=== PATIENT | male | born 1955 | race Caucasian/White ===

== ENCOUNTER 2018-02-26 15:26 | Inpatient (IN) ==
[2018-02-26] MEDS ORDERED: *HR* Dextrose 50 % in Water (Syg) 50 ML SYRINGE IVP PRN (21:09)
[2018-02-26] MEDS ORDERED: D5% in Water 1,000 ML IVC PRN (21:09)
[2018-02-26] MEDS ORDERED: Dextrose Gel 15 GM/37.5 ML TUBE PO PRN ×2 (21:09)
[2018-02-26] MEDS: Acetaminophen 325 MG TABLET PO PRN (22:50)
[2018-02-26] MEDS: Aspirin Enteric Coated 325 MG Tablet PO SCH (22:50)
[2018-02-27 05:22] LABS: Basophils % 0.3 %; Eosinophils # 0.5 K/mcL (0.0-0.6); Eosinophils % 4.3 %; Hematocrit 30.1 % (37.5-50.1); Hemoglobin 9.4 g/dL (12.9-16.9); Immature Granulocytes % 0.4 % (0-4); Lymphocytes # 1.8 K/mcL (0.6-4.6); Lymphocytes % 15.6 %; Mean Corpuscular HGB Conc 31.2 g/dL (31.6-35.5); Mean Corpuscular Hemoglobin 27.4 pg (28.0-33.3); Mean Corpuscular Volume 87.8 fL (83.0-100.0); Mean Platelet Volume 8.9 fL (9.4-12.4); Monocytes # 1.1 K/mcL (0.0-1.3); Monocytes % 9.6 %; Platelet Count 326 K/mcL (140-400); Red Blood Count 3.43 M/mcL (4.19-5.50); Red Cell Distribution Width 13.3 % (11.5-14.5); Segmented Neutrophils % 69.8 %
[2018-02-27 05:41] LABS: Calcium 8.9 mg/dL (8.6-10.3); Potassium 4.2 mEq/L (3.5-5.1)
[2018-02-27] MEDS: *HR* OxyCODONE Immed Rel 5 MG TABLET PO PRN ×4 (05:50→21:33)
[2018-02-27] MEDS: Insulin LISPRO 300 UNITS/3 ML VIAL SQ SCH ×4 (07:56→21:32)
[2018-02-27] MEDS: Aspirin Enteric Coated 325 MG Tablet PO SCH ×2 (08:54→21:33)
[2018-02-27] MEDS: Insulin NPH/REG 70/30 100 UNIT/ML (x5UNIT) SQ SCH ×2 (08:55→17:14)
[2018-02-27] MEDS: Acetaminophen 325 MG TABLET PO PRN ×2 (09:10→17:15)
[2018-02-27 16:54] LABS: Bilirubin,Urine Negative (Negative); Clarity,Urine Clear (Clear); Color,Urine Yellow (Yellow); Glucose,Urine (UA) Normal (Normal); Ketones,Urine Negative (Negative); Leukocyte Esterase,Urine Negative (Negative); Nitrite,Urine Negative (Negative); Protein,Urine 30 mg/dL (Neg-Trace); Specific Gravity,Urine 1.015 (1.010-1.025); Urobilinogen,Urine Normal (Normal)
[2018-02-27 16:55] LABS: Blood,Urine Negative (Negative)
[2018-02-27 17:00] LABS: Squamous Epithelial Cell,Urine Few per lpf (None-Few)
[2018-02-28] MEDS: *HR* OxyCODONE Immed Rel 5 MG TABLET PO PRN ×4 (04:15→23:23)
[2018-02-28 04:40] LABS: Thyroid Stimulating Hormone 1.467 mcIU/mL (0.340-5.600)
[2018-02-28] MEDS: Insulin LISPRO 300 UNITS/3 ML VIAL SQ SCH ×4 (09:44→20:55)
[2018-02-28] MEDS: Aspirin Enteric Coated 325 MG Tablet PO SCH ×2 (09:45→20:53)
[2018-02-28] MEDS: Insulin NPH/REG 70/30 100 UNIT/ML (x5UNIT) SQ SCH ×2 (09:46→17:26)
--- NOTE | 2018-02-28 19:00 | Internal Med History&Physical ---
Date of Encounter: 02/27/18 Time of Encounter: 18:30 Assessment and Plan (1) Status post total right knee replacement Current visit: No Status: Acute continue current care pain control increase to q 4 hr pt ot (2) TERRY on CPAP Current visit: No Status: Chronic some recent noncompliance at home old machine try our cpap here setting of 10 Internal Medicine - H&P: HPI Chief complaint: S/P Right Total Knee replacement deconditioning Admitted From: Intrahospital Transfer History of present illness: Mr. Verde is a 62 year old male who recently had Right Total knee replacement states went well but he is deconditioned here for rehab he states he has some pain in the knee that gets 8/10 at times says he has had terry his home cpap machine is here but not complete missing parts he says he lost about 60 lb by diet and since then he did not get repeat sleep study says he has interest in trying our cpap Past Med Surg Social Fam HX - Past Medical History Medical history: diabetes, hyperlipidemia, kidney stones, other Additional medical history: KIDNEY DISEASE, GOUT, BPH, TERRY, sleep apnea Psychiatric history: no psych history - Past Surgical History Surgical History: herniorrhaphy, orthopedic, other Additional surgical history: COLONOSCOPY, UMESH KNEE SX,. Eye Surgery - Social History Smoking Status: Former smoker Smokeless Tobacco Status: No Alcohol use: none Drug use: none - Family History Mother Hx Family Endocrine Disorder: Yes (DM) Father History Unknown: Yes Living Status: Hx Family Respiratory Disorders: Yes Hx Family Cancer: Yes (unknown type) Internal Medicine - H&P: Meds Atorvastatin [Lipitor] 20 mg PO DAILY 03/05/15 [History] Omeprazole [PriLOSEC] 40 mg PO DAILY 11/14/17 [History] Acetaminophen [Tylenol] 650 mg PO Q6HR PRN 02/22/18 [History] Aspirin Enteric Coated [Aspirin EC] 325 mg PO BID 10 Days #20 tablet. 02/22/18 [Rx] OxyCODONE Immed Rel [Roxicodone 5 MG] 5 mg PO Q6HR PRN 7 Days #28 tablet 02/22/18 [Rx] Insulin NPH/REG 70/30 (HUMAN) [Humulin 70/30 Vial] 8 unit SQ BIDWM 02/26/18 [History] Allergy/AdvReac Type Severity Reaction Status Date / Time No Known Allergies Allergy Verified 02/22/18 14:58 All Systems PM: A 10-system review of systems was performed and is negative for pertinent findings except as documented above in the HPI. - Constitutional Vitals: Temp Pulse Resp BP Pulse Ox 98.7 F 103 18 130/82 97 02/28/18 09:00 02/28/18 09:00 02/28/18 09:00 02/28/18 09:00 02/28/18 09:00 General appearance: Present: pleasant, answers questions appropriately - Neck Additional comments: thick neck no mass - Respiratory Additional comments: clear bilat some barrel chest - Cardiovascular Additional comments: regular he has no murmer today on auscultation - GI/Abdominal GI/Abdominal exam: Present: no peritoneal signs Additional comments: bs present nt Internal Med - H&P Results - Labs CBC & Chem 7: 02/27/18 05:10 02/27/18 05:10 - VTE Documentation of Mechanical Device: Graduated compression elastic hosiery
--- NOTE | 2018-02-28 19:06 | Internal Med Progress Note ---
Date of Encounter: 02/28/18 Time of Encounter: 15:40 - Assessment and plan (1) Status post total right knee replacement Current Visit: No Status: Acute (2) TERRY on CPAP Current Visit: No Status: Chronic - Subjective Interval history: Assessment and Plan (1) Status post total right knee replacement Current visit: No Status: Acute continue current care pain control increase to q 4 hr pt ot (2) TERRY on CPAP Current visit: No Status: Chronic some recent noncompliance at home old machine try our cpap here setting of 10 hb 9.5 will check iron and b12 Interval hx S/P Right Total Knee replacement deconditioning Admitted From: Intrahospital Transfer History of present illness: Mr. Verde is a 62 year old male who recently had Right Total knee replacement states went well but he is deconditioned here for rehab he states he has some pain in the knee that gets 8/10 at times did increase pain rx to q 4h exam - Constitutional Vitals: Temp Pulse Resp BP Pulse Ox 98.7 F 103 18 130/82 97 02/28/18 09:00 02/28/18 09:00 02/28/18 09:00 02/28/18 09:00 02/28/18 09:00 General appearance: Present: pleasant, answers questions appropriately - Neck Additional comments: thick neck no mass - Respiratory Additional comments: clear bilat some barrel chest - Cardiovascular Additional comments: regular he has no murmer today on auscultation - GI/Abdominal GI/Abdominal exam: Present: no peritoneal signs Additional comments: bs present nt Internal Med - H&P Results - Labs CBC & Chem 7: 02/27/18 05:10 02/27/18 05:10 - VTE Documentation of Mechanical Device: Graduated compression elastic hosiery - Constitutional Vitals: Temp Pulse Resp BP Pulse Ox 99.2 F 109 16 128/64 95 02/28/18 19:02 02/28/18 19:02 02/28/18 19:02 02/28/18 19:02 02/28/18 19:02 General appearance: Present: pleasant, answers questions appropriately Internal Medicine: Result - Labs CBC & Chem 7: 02/27/18 05:10 02/27/18 05:10 - VTE Documentation of Mechanical Device: Graduated compression elastic hosiery Consult Discharge Plan - Plan Referrals: UcNahun sánchez MD [Primary Care Provider] -
[2018-03-01] MEDS: *HR* OxyCODONE Immed Rel 5 MG TABLET PO PRN ×4 (04:08→20:45)
[2018-03-01 05:31] LABS: Basophils % 0.3 %; Eosinophils # 0.4 K/mcL (0.0-0.6); Eosinophils % 4.1 %; Hematocrit 29.5 % (37.5-50.1); Hemoglobin 9.4 g/dL (12.9-16.9); Immature Granulocytes % 0.5 % (0-4); Lymphocytes # 1.5 K/mcL (0.6-4.6); Lymphocytes % 14.5 %; Mean Corpuscular HGB Conc 31.9 g/dL (31.6-35.5); Mean Corpuscular Hemoglobin 27.5 pg (28.0-33.3); Mean Corpuscular Volume 86.3 fL (83.0-100.0); Mean Platelet Volume 9.1 fL (9.4-12.4); Monocytes % 9.7 %; Neutrophils # 7.1 K/mcL (1.6-8.9); Platelet Count 381 K/mcL (140-400); Red Blood Count 3.42 M/mcL (4.19-5.50); Red Cell Distribution Width 13.2 % (11.5-14.5); Segmented Neutrophils % 70.9 %
[2018-03-01 05:45] LABS: Calcium 9.4 mg/dL (8.6-10.3); Potassium 4.3 mEq/L (3.5-5.1)
[2018-03-01] MEDS: Aspirin Enteric Coated 325 MG Tablet PO SCH ×2 (09:51→20:45)
[2018-03-01] MEDS: Insulin NPH/REG 70/30 100 UNIT/ML (x5UNIT) SQ SCH ×2 (09:52→18:26)
[2018-03-01] MEDS: Insulin LISPRO 300 UNITS/3 ML VIAL SQ SCH ×4 (09:53→20:45)
[2018-03-01] MEDS: Acetaminophen 325 MG TABLET PO PRN (11:43)
[2018-03-01 13:16] LABS: % Iron Saturation 6 % (20-55); Iron 14 mcg/dL (65-175); Transferrin 172 mg/dL (203-362)
--- NOTE | 2018-03-01 15:43 | Internal Med Progress Note ---
Addendum entered and electronically signed by Abraham Somers MD 03/01/18 16:30: I have personally performed a face to face evaluation on this patient. I have r eviewed and agree with the care plan. History and Exam by me shows: Patient has complaint of right knee pain, only. On further questioning, he has not had a bowel movement "for 2 weeks." He denies abdominal pain or nausea, breathing problems, other etc. Discussed care with other providers and/or nursing. Patient has no complaint of chest discomfort, dyspnea, orthopnea, palpitations, nausea or vomiting, constipation or diarrhea, other changes in bowel habits, difficulty with urination, rash or itching, or other new complaints, except as mentioned above. Review of systems is otherwise negative. Examination: (Except as mentioned above): General: In no apparent distress. Alert and oriented 3. Nondiaphoretic. Head: Atraumatic and normocephalic. Respiratory: No use of accessory muscles. Lungs are clear throughout. Normal airflow. Cardiovascular: Regular rate and rhythm without murmur appreciated. Abdomen: Bowel sounds are normal. No hepatosplenomegaly mass or tenderness appreciated. Obese and therefore difficult to palpate deeply. Extremities: No cyanosis clubbing or edema. Skin: Warm and non-diaphoretic with no new lesions noted. Neurologic: The patient has noted asterixis. We will follow and try to decrease his opioids in the next day or so. I suspect that he will have a low pain tolerance and nursing confirms this. We will use magnesium citrate to try to invoke a bowel movement. Original Note: Date of Encounter: 03/01/18 Time of Encounter: 15:39 - Assessment and plan (1) Status post total right knee replacement Current Visit: No Status: Acute Assessment and plan: Patient continues with complaints of moderate to severe pain to his right knee which increases with movement. Right knee appears slightly swollen but midline surgical incision appears healthy and intact. Patient's current pain medications have been increased and will monitor patient's response to medication. (2) CKD (chronic kidney disease) Current Visit: Yes Status: Chronic Assessment and plan: No acute issues at this time. Patient's last creatinine was 1.49. We will cont inue to monitor patient's renal status with serial labs. We will continue with current medications. Qualifiers: Chronic kidney disease stage: unspecified stage Qualified Code(s): N18.9 - Chronic kidney disease, unspecified (3) HTN (hypertension) Current Visit: Yes Status: Chronic Assessment and plan: Vital signs are stable. We will continue with current medications. Qualifiers: Hypertension type: unspecified Qualified Code(s): I10 - Essential (primary) hypertension (4) GERD (gastroesophageal reflux disease) Current Visit: Yes Status: Chronic Assessment and plan: No acute issues. Patient denies any current reflux or abdominal pain. We will continue with current medications. Qualifiers: Esophagitis presence: esophagitis presence not specified Qualified Code(s): K21.9 - Gastro-esophageal reflux disease without esophagitis (5) Diabetes mellitus Current Visit: No Status: Chronic Assessment and plan: No acute issues. Patient's glucoses preferable controlled with most fingerstick readings between 150 and 200. We will continue with current medication regimen. Qualifiers: Diabetes mellitus type: type 2 Diabetes mellitus penitentiary insulin use: with penitentiary use Diabetes mellitus complication status: with unspecified complications Qualified Code(s): E11.8 - Type 2 diabetes mellitus with unspecified complications; Z79.4 - [facility] (current) use of insulin - Time Spent With Patient less than 15 minutes - Subjective Interval history: Patient appears relaxed but noted grimacing with minimal movement of right leg. Patient continues with complaints of moderate to severe pain to his right knee surgical site. Patient states that pain increases with any movement and states that his current pain medications have not been effective in controlling this pain. Patient has continuous icing machine available, but currently is not in use. Patient denies any other issues or dyspnea. - Constitutional Vitals: Temp Pulse Resp BP Pulse Ox 99.2 F 103 15 142/81 96 03/01/18 08:07 03/01/18 08:07 03/01/18 08:07 03/01/18 08:07 03/01/18 08:07 General appearance: Present: A&O X 3, pleasant, answers questions appropriately - Head Head exam: Present: atraumatic, normocephalic - Eye Eye exam: Present: PERRL, conjuntiva pink, sclera anicteric Pupils: Present: PERRL - Neck Neck exam general surgery: Present: supple, trachea midline. Absent: lymphadenopathy - Respiratory Respiratory exam: Present: CTAB. Absent: accessory muscle use, rales, rhonchi, wheezes - Cardiovascular Cardiovascular exam: Present: RRR, +S1, +S2. Absent: diastolic murmur, gallop, rubs, systolic murmur - GI/Abdominal GI/Abdominal exam: Present: normal bowel sounds, soft, no peritoneal signs. Absent: distended, tenderness - Extremities Exam Extremities exam: Present: warm, radial pulses palpable and symmetrical. Absent: calf tenderness, cyanotic, pedal edema Additional comments: Right knee with midline incision which is dry and intact. No ecchymosis or erythema noted. Slight swelling to right knee. Patient has continuous icing available - Neurological Exam Neurological exam: Present: CN II-XII intact, oriented X3, no focal deficits. Absent: pronater drift, facial droop, speech deficit - Skin Skin exam: Present: dry, intact Internal Medicine: Result - Labs CBC & Chem 7: 03/01/18 05:15 03/01/18 05:15 Labs: Short CBC 03/01/18 Range/Units 05:15 WBC 10.0 (4.3-11.1) K/mcL Hgb 9.4 L (12.9-16.9) g/dL Hct 29.5 L (37.5-50.1) % Plt Count 381 (140-400) K/mcL Neutrophils # 7.1 (1.6-8.9) K/mcL BMP 03/01/18 05:15 Sodium 136 Potassium 4.3 Chloride 102 Carbon Dioxide 23 BUN 39 H Creatinine 1.49 H Glucose 130 H Calcium 9.4 - VTE Documentation of Mechanical Device: Graduated compression elastic hosiery Consult Discharge Plan - Plan Referrals: Nahun sánchez MD [Primary Care Provider] -
[2018-03-02] MEDS: *HR* OxyCODONE Immed Rel 5 MG TABLET PO PRN ×4 (03:45→20:43)
[2018-03-02] MEDS: Acetaminophen 325 MG TABLET PO PRN (09:07)
[2018-03-02] MEDS: Aspirin Enteric Coated 325 MG Tablet PO SCH ×2 (09:07→20:45)
[2018-03-02] MEDS: Insulin LISPRO 300 UNITS/3 ML VIAL SQ SCH ×4 (09:08→20:46)
[2018-03-02 09:28] LABS: Basophils % 0.4 %; Eosinophils # 0.5 K/mcL (0.0-0.6); Eosinophils % 4.5 %; Hematocrit 31.2 % (37.5-50.1); Hemoglobin 9.9 g/dL (12.9-16.9); Immature Granulocytes % 0.6 % (0-4); Lymphocytes # 1.2 K/mcL (0.6-4.6); Lymphocytes % 10.8 %; Mean Corpuscular HGB Conc 31.7 g/dL (31.6-35.5); Mean Corpuscular Hemoglobin 27.5 pg (28.0-33.3); Mean Corpuscular Volume 86.7 fL (83.0-100.0); Mean Platelet Volume 8.8 fL (9.4-12.4); Monocytes # 1.1 K/mcL (0.0-1.3); Neutrophils # 8.4 K/mcL (1.6-8.9); Platelet Count 437 K/mcL (140-400); Red Cell Distribution Width 13.2 % (11.5-14.5); Segmented Neutrophils % 73.7 %
[2018-03-02 09:31] LABS: Basophils # 0.1 K/mcL (0.0-0.2)
[2018-03-02 09:39] LABS: Calcium 9.8 mg/dL (8.6-10.3); Potassium 4.1 mEq/L (3.5-5.1)
[2018-03-02] MEDS: Insulin NPH/REG 70/30 100 UNIT/ML (x5UNIT) SQ SCH ×2 (11:55→17:51)
[2018-03-02] MEDS: tiZANidine 4 MG TABLET PO SCH ×3 (14:07→20:45)
--- NOTE | 2018-03-02 14:13 | Internal Med Progress Note ---
Date of Encounter: 03/02/18 Time of Encounter: 10:45 - Assessment and plan (1) Status post total right knee replacement Current Visit: No Status: Acute Assessment and plan: He seems to be doing relatively well except for pain control. We will try to cut back on his opioids and follow. A trial of ties tizanidine will be added. I have checked uric acid as well to see if there could be a complement of gout. (2) Hypertension Current Visit: No Status: Chronic Assessment and plan: Clinically stable. We will continue home regimen and follow. Qualifiers: Hypertension type: essential hypertension Qualified Code(s): I10 - Essential (primary) hypertension (3) TERRY on CPAP Current Visit: No Status: Chronic Assessment and plan: This is stable and he is using his CPAP per home settings. (4) GERD (gastroesophageal reflux disease) Current Visit: Yes Status: Chronic Assessment and plan: Clinically stable. We will continue home regimen and follow. Qualifiers: Esophagitis presence: esophagitis presence not specified Qualified Code(s): K21.9 - Gastro-esophageal reflux disease without esophagitis (5) CKD (chronic kidney disease) Current Visit: Yes Status: Chronic Assessment and plan: Stable but will watch and avoid nonsteroidals, as above. Qualifiers: Chronic kidney disease stage: unspecified stage Qualified Code(s): N18.9 - Chronic kidney disease, unspecified - Subjective Interval history: Patient still complaining of severe pain. He is crying out with motion, with therapy. However, nursing noted this morning that he was oriented to self only. He was not able to answer questions appropriately and they attributed this to pain medicine and/or other problems. Because he did not have any focal neurologic changes, I assume that this was related to his medication and we will decrease his oxycodone. Patient has also complained of pain in his groin, his left foot, his wrists, his left elbow. He attributes this to gout. He is not sure about what medication he uses for this, at home but states he is in severe pain. I told him we would try to find other medications to help but we are limited in terms using nonsteroidals because of his renal insufficiency. Patient has no complaint of chest discomfort, dyspnea, orthopnea, palpitations, nausea or vomiting, constipation or diarrhea, other changes in bowel habits, d ifficulty with urination, rash or itching, or other new complaints, except as mentioned above. Review of systems is otherwise negative. I discussed management of her care with nursing staff. - Constitutional Vitals: Temp Pulse Resp BP Pulse Ox 98.5 F 95 16 136/79 98 03/02/18 07:16 03/02/18 07:16 03/02/18 07:16 03/02/18 07:16 03/02/18 07:16 Exam: Examination: (Except as mentioned above): General: In no apparent distress. Alert and oriented 3. Nondiaphoretic. There is no sign of confusion, now, although he is slow to answer some detail questions. Head: Atraumatic and normocephalic. Respiratory: No use of accessory muscles. Lungs are clear throughout. Normal airflow. Cardiovascular: Regular rate and rhythm without murmur appreciated. Abdomen: Bowel sounds are normal. No hepatosplenomegaly mass or tenderness appreciated. Obese and therefore difficult to palpate deeply. Extremities: No cyanosis clubbing or edema. Skin: Warm and non-diaphoretic with no new lesions noted. Internal Medicine: Result - Labs CBC & Chem 7: 03/02/18 09:12 03/02/18 09:12 Labs: Short CBC 03/02/18 Range/Units 09:12 WBC 11.4 H (4.3-11.1) K/mcL Hgb 9.9 L (12.9-16.9) g/dL Hct 31.2 L (37.5-50.1) % Plt Count 437 H (140-400) K/mcL Neutrophils # 8.4 (1.6-8.9) K/mcL BMP 03/02/18 09:12 Sodium 133 L Potassium 4.1 Chloride 99 Carbon Dioxide 24 BUN 43 H Creatinine 1.52 H Glucose 178 H Calcium 9.8 - VTE Documentation of Mechanical Device: Graduated compression elastic hosiery Consult Discharge Plan - Plan Referrals: princess,Nahun Rdz MD [Primary Care Provider] -
[2018-03-03] MEDS: *HR* OxyCODONE Immed Rel 5 MG TABLET PO PRN ×4 (02:19→20:56)
[2018-03-03] MEDS: Insulin LISPRO 300 UNITS/3 ML VIAL SQ SCH ×4 (08:47→21:05)
[2018-03-03] MEDS: Aspirin Enteric Coated 325 MG Tablet PO SCH ×2 (09:14→20:54)
[2018-03-03] MEDS: tiZANidine 4 MG TABLET PO SCH ×4 (09:14→20:55)
[2018-03-03] MEDS: Insulin NPH/REG 70/30 100 UNIT/ML (x5UNIT) SQ SCH ×2 (09:16→17:26)
[2018-03-03] MEDS ORDERED: Colchicine 0.6 MG TABLET PO ONE (09:51)
--- NOTE | 2018-03-03 11:51 | Psychological Evaluation ---
Date of Encounter: 03/03/18 Time of Encounter: 10:00 History of Present Illness History of present illness: Mr. Verde is a 62 year old male ho recently had Right Total knee replacement states went well but he is deconditioned here for rehab Past Medical History - Psychiatric History Psychiatric history: Reports: no psych history Home Medications and Allergies Atorvastatin [Lipitor] 20 mg PO DAILY 03/05/15 [History] Omeprazole [PriLOSEC] 40 mg PO DAILY 11/14/17 [History] Acetaminophen [Tylenol] 650 mg PO Q6HR PRN 02/22/18 [History] Aspirin Enteric Coated [Aspirin EC] 325 mg PO BID 10 Days #20 tablet. 02/22/18 [Rx] Insulin NPH/REG 70/30 (HUMAN) [Humulin 70/30 Vial] 8 unit SQ BIDWM 02/26/18 [History] Allergy/AdvReac Type Severity Reaction Status Date / Time No Known Allergies Allergy Verified 02/22/18 14:58 Social History - Social History Social History: 18 years and has 26 year old foster son. Works as [employer]. supportive and notes confusion, agitation 6+ months due to multiple medical issues - gout, diabetes . Yells and cursing at staff and states he feels like "treated as idiot". He acknowledges confusion and had difficulty maintaining conversation coherently. - Tobacco Use Smoking Status: Never smoker - Alcohol Use Alcohol Use: none - Drug Use Drug Use: none Cognitive/Emotional Assessment - Cognitive Ability Abstract Thinking Ability: Unable to Use Concepts Attention Span Ability: Unable to Sustain Attention Level of Alertness: Confusional State Memory Description: Recent Impaired, Short Term Impaired (In and out of periods of brief lucidity), Working Impaired Speech Pattern: Includes Profanity Thought Process: Disorganized Additional Findings: Knew pres, previous pres, and governor. Digits unable to perfrom; spell WORLD forward but not backward; 1/3 words after 5 min - Emotional Status Mood Description: Depressed, Anxious Affect Description: Full range Coping Ability: Inability to cope effectively Additional Findings: Noted facial grimacing from pain and verbal moaning Assessment & Plan - Diagnosis (1) Adjustment reaction with anxiety and depression - Prognosis Prognosis: Fair - Treatment Plan Treatment Plan/Recommendations: Will follow while inpt. Concerned if behavior due to meds or medical issues that aren't stable. R/O cognitive disorder. Next Session Date: 03/10/18 Procedures - Intervention Interventions: Cognitive/Behavioral Therapy - Participants Therapy Participant: Patient - Session Time Session Start Time: 10:00 Session Stop Time: 10:30
[2018-03-03] MEDS ORDERED: methylPREDNISolone 125 MG/2 ML VIAL IVP SCH ×2 (12:00→21:00)
--- NOTE | 2018-03-03 14:10 | Internal Med Progress Note ---
Addendum entered and electronically signed by Abraham Somers MD 03/04/18 12:43: I have personally performed a face to face evaluation on this patient. I have r eviewed and agree with the care plan. History and Exam by me shows: The patient was evaluated by me yesterday but the note was not complete. This documentation is being completed today for that reason. The patient complains of persistent severe pain, everywhere. This is especially bad in his knee. He refuses therapy because of pain. I explained to him that his uric acid level and index of inflammation (sedimentation rate) are both quite high. For this reason, we will give him colchicine, IV steroids, and begin low-dose allopurinol. He will not have high- dose as this may cause a worsening of his crystal precipitation. Discussed care with other providers and/or nursing. Patient has no complaint of chest discomfort, dyspnea, orthopnea, palpitations, nausea or vomiting, constipation or diarrhea, other changes in bowel habits, difficulty with urination, rash or itching, or other new complaints, except as mentioned above. Review of systems is otherwise negative. Examination: (Except as mentioned above): General: In no apparent distress. Alert and oriented 3. Nondiaphoretic. Head: Atraumatic and normocephalic. Respiratory: No use of accessory muscles. Lungs are clear throughout. Normal airflow. Cardiovascular: Regular rate and rhythm without murmur appreciated. Abdomen: Bowel sounds are normal. No hepatosplenomegaly mass or tenderness appreciated. Obese and therefore difficult to palpate deeply. Extremities: No cyanosis clubbing or edema. Skin: Warm and non-diaphoretic with no new lesions noted. Original Note: Date of Encounter: 03/03/18 Time of Encounter: 14:08 - Assessment and plan (1) Status post total right knee replacement Current Visit: Yes Status: Acute Assessment and plan: Continue PT and OT. Continue oxycodone for pain. Follow up with as scheduled. (2) CKD (chronic kidney disease) Current Visit: Yes Status: Chronic Assessment and plan: Monitor labs. Avoid nephrotoxic agents. Qualifiers: Chronic kidney disease stage: unspecified stage Qualified Code(s): N18.9 - Chronic kidney disease, unspecified (3) HTN (hypertension) Current Visit: Yes Status: Chronic Assessment and plan: Controlled with current medication. Monitor blood pressure. Qualifiers: Hypertension type: unspecified Qualified Code(s): I10 - Essential (primary) hypertension (4) TERRY on CPAP Current Visit: Yes Status: Chronic Assessment and plan: Stable. Continue CPAP. (5) Diabetes mellitus Current Visit: Yes Status: Chronic Assessment and plan: Continue insulin per sliding scale. Monitor fingerstick blood sugar. 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 Solu-Medrol IV ordered and colchicine. Will monitor for improvement. Qualifiers: Gout site: multiple sites Gout etiology: unspecified cause Chronicity: acute Qualified Code(s): M10.9 - Gout, unspecified - Time Spent With Patient less than 15 minutes - Subjective Interval history: Patient unable to participate with therapy due to increased pain. Status assist left knee and left hip area. Has history of gout. ESR and uric acid are elevated at this time. IV Solu-Medrol and colchicine ordered. present. States patient has had gout flareups in the past. Patient continues to be confused often on. Better today than yesterday. Pain medications were decreased and tizanidine was ordered. Denies fever, chills, nausea vomiting or diarrhea. - Constitutional Vitals: Temp Pulse Resp BP Pulse Ox 98.6 F 98 17 121/72 97 03/03/18 06:52 03/03/18 06:52 03/03/18 06:52 03/03/18 06:52 03/03/18 06:52 General appearance: Present: cooperative, A&O X 3, pleasant - Head Head exam: Present: atraumatic, normocephalic - Eye Eye exam: Present: PERRL, conjuntiva pink, sclera anicteric Pupils: Present: PERRL - Neck Neck exam general surgery: Present: supple, trachea midline. Absent: lymphadenopathy - Respiratory Respiratory exam: Present: CTAB. Absent: accessory muscle use, rales, rhonchi, wheezes - Cardiovascular Cardiovascular exam: Present: RRR, +S1, +S2. Absent: diastolic murmur, gallop, rubs, systolic murmur - GI/Abdominal GI/Abdominal exam: Present: normal bowel sounds, soft, no peritoneal signs. Absent: distended, tenderness - Extremities Exam Extremities exam: Present: warm, radial pulses palpable and symmetrical. Absent: calf tenderness, cyanotic, pedal edema - Incison Comments: Right knee incision dressing dry and intact. Surrounding edema present. No drainage. - Neurological Exam Neurological exam: Present: CN II-XII intact, oriented X3, no focal deficits. Absent: pronater drift, facial droop, speech deficit - Skin Skin exam: Present: dry, intact Internal Medicine: Result - Labs CBC & Chem 7: 03/02/18 09:12 03/02/18 09:12 - VTE Documentation of Mechanical Device: Graduated compression elastic hosiery Consult Discharge Plan - Plan Referrals: Nahun Cristobal MD [Primary Care Provider] -
[2018-03-03] MEDS: Colchicine 0.6 MG TABLET PO SCH (20:54)
[2018-03-04] MEDS: *HR* OxyCODONE Immed Rel 5 MG TABLET PO PRN ×2 (06:23→12:18)
[2018-03-04] MEDS: tiZANidine 4 MG TABLET PO SCH ×4 (07:50→20:08)
[2018-03-04] MEDS: Aspirin Enteric Coated 325 MG Tablet PO SCH ×2 (07:50→20:08)
[2018-03-04] MEDS: Insulin LISPRO 300 UNITS/3 ML VIAL SQ SCH ×3 (07:51→17:34)
[2018-03-04] MEDS: Insulin NPH/REG 70/30 100 UNIT/ML (x5UNIT) SQ SCH ×2 (07:51→17:30)
[2018-03-04] MEDS: Colchicine 0.6 MG TABLET PO SCH ×2 (08:14→20:08)
--- NOTE | 2018-03-04 12:51 | Internal Med Progress Note ---
Addendum entered and electronically signed by Abraham Somers MD 03/05/18 14:20: I have personally performed a face to face evaluation on this patient. I have r eviewed and agree with the care plan. History and Exam by me shows: The patient was evaluated by me yesterday but the note was not complete. This documentation is being completed today for that reason. Patient has far fewer complaints. While he still hurts, especially his knee, is much better than yesterday. He is able to participate in therapy. He has not had a bowel movement but feels that this is coming. He is otherwise without interval change. Nursing and therapy notes that he still seems to be somewhat confused. I instructed them to watch and no flaccid fits worsens. This could be delirium related to environment or sleep change and/or pain medication. Discussed care with other providers and/or nursing. Patient has no complaint of chest discomfort, dyspnea, orthopnea, palpitations, nausea or vomiting, constipation or diarrhea, other changes in bowel habits, difficulty with urination, rash or itching, or other new complaints, except as mentioned above. Review of systems is otherwise negative. Examination: (Except as mentioned above): General: In no apparent distress. Alert and oriented 3. Nondiaphoretic. Head: Atraumatic and normocephalic. Respiratory: No use of accessory muscles. Lungs are clear throughout. Normal airflow. Cardiovascular: Regular rate and rhythm without murmur appreciated. Abdomen: Bowel sounds are normal. No hepatosplenomegaly mass or tenderness appreciated. Obese and therefore difficult to palpate deeply. Extremities: No cyanosis clubbing or edema. Skin: Warm and non-diaphoretic with no new lesions noted. Original Note: Date of Encounter: 03/04/18 Time of Encounter: 12:49 - Assessment and plan (1) Status post total right knee replacement Current Visit: Yes Status: Acute Assessment and plan: Patient continues with complaints of pain to his right knee which increases during mobilization. Pain to right knee has improved over the past several days and patient has been dissipating in physical therapy. We will continue with current plan of care. (2) CKD (chronic kidney disease) Current Visit: Yes Status: Chronic Assessment and plan: No acute issues at this time. Patient's last creatinine was 1.52. We will continue to monitor patient's renal status with serial labs. We will continue with current medications. Qualifiers: Chronic kidney disease stage: unspecified stage Qualified Code(s): N18.9 - Chronic kidney disease, unspecified (3) HTN (hypertension) Current Visit: Yes Status: Chronic Assessment and plan: Vital signs are stable. We will continue with current medications. Qualifiers: Hypertension type: unspecified Qualified Code(s): I10 - Essential (primary) hypertension (4) GERD (gastroesophageal reflux disease) Current Visit: Yes Status: Chronic Assessment and plan: No acute issues. Patient denies any current reflux or abdominal pain. We will continue with current medications. Qualifiers: Esophagitis presence: esophagitis presence not specified Qualified Code(s): K21.9 - Gastro-esophageal reflux disease without esophagitis (5) Diabetes mellitus Current Visit: Yes Status: Chronic Assessment and plan: No acute issues. Patient's glucoses preferable controlled with most fingerstick readings between 150 and 200. We will continue with current medication regimen. Qualifiers: Diabetes mellitus type: type 2 Diabetes mellitus termite exterminator helper insulin use: with care home use Diabetes mellitus complication status: with unspecified complications Qualified Code(s): E11.8 - Type 2 diabetes mellitus with unspecified complications; Z79.4 - care home (current) use of insulin (6) Gout Current Visit: Yes Status: Acute Assessment and plan: Patient continues to complain of slight pain to his left knee and bilateral wrist, which he states has improved greatly since receiving his dosing of coaches seem yesterday. No edema or erythema noted to the left knee. Patient states his pain increases during range of motion. Bilateral wrist with Emiliano wrap in place which patient states he uses for comfort during his flareups. Patient states overall his pain has reduced greatly. We will continue on allopurinol Qualifiers: Gout site: unspecified site Gout etiology: unspecified cause Chronicity: unspecified Qualified Code(s): M10.9 - Gout, unspecified - Time Spent With Patient less than 15 minutes - Subjective Interval history: Patient appears relaxed. Patient states she continues to have slight pain to his right knee surgical site which increases during mobilization. Patient also states he continues to have residual gout pain to bilateral wrist and left knee. Patient states after receiving his colchicine yesterday for his gout flareup that his pain has reduced. No erythema noted to left knee. Bilateral wrist have Emiliano wraps, which patient states he uses at home when his gout flareups. - Constitutional Vitals: Temp Pulse Resp BP Pulse Ox 97.3 F L 87 16 113/71 95 03/04/18 07:40 03/04/18 07:40 03/04/18 07:40 03/04/18 07:40 03/04/18 07:40 General appearance: Present: cooperative, A&O X 3, pleasant - Head Head exam: Present: atraumatic, normocephalic - Eye Eye exam: Present: PERRL, conjuntiva pink, sclera anicteric Pupils: Present: PERRL - Neck Neck exam general surgery: Present: supple, trachea midline. Absent: lymphadenopathy - Respiratory Respiratory exam: Present: CTAB. Absent: accessory muscle use, rales, rhonchi, wheezes - Cardiovascular Cardiovascular exam: Present: RRR, +S1, +S2. Absent: diastolic murmur, gallop, rubs, systolic murmur - GI/Abdominal GI/Abdominal exam: Present: normal bowel sounds, soft, no peritoneal signs. Absent: distended, tenderness - Extremities Exam Extremities exam: Present: warm, radial pulses palpable and symmetrical. Absent: calf tenderness, cyanotic, pedal edema Additional comments: Right knee with midline incision that appears healthy and intact. Slight swelling to right knee. No ecchymosis or erythema noted. Left knee with slight tenderness during range of motion, but no edema or erythema noted. Bilateral wrist with Emiliano wraps in place, which patient uses for comfort during his gout flareups - Neurological Exam Neurological exam: Present: CN II-XII intact, oriented X3, no focal deficits. Absent: pronater drift, facial droop, speech deficit - Skin Skin exam: Present: dry, intact Internal Medicine: Result - Labs CBC & Chem 7: 03/02/18 09:12 03/02/18 09:12 - VTE Documentation of Mechanical Device: Graduated compression elastic hosiery Consult Discharge Plan - Plan Referrals: Nahun Cristobal MD [Primary Care Provider] -
[2018-03-05] MEDS: Insulin LISPRO 300 UNITS/3 ML VIAL SQ SCH ×5 (00:26→22:09)
[2018-03-05] MEDS: *HR* OxyCODONE Immed Rel 5 MG TABLET PO PRN ×4 (06:04→22:06)
[2018-03-05] MEDS: Colchicine 0.6 MG TABLET PO SCH ×2 (08:46→22:06)
[2018-03-05] MEDS: Insulin NPH/REG 70/30 100 UNIT/ML (x5UNIT) SQ SCH ×2 (08:47→17:08)
[2018-03-05] MEDS: tiZANidine 4 MG TABLET PO SCH ×4 (08:47→22:06)
[2018-03-05] MEDS: Aspirin Enteric Coated 325 MG Tablet PO SCH ×2 (08:47→22:05)
--- NOTE | 2018-03-05 14:05 | Internal Med Progress Note ---
Addendum entered and electronically signed by Abraham Somers MD 03/05/18 14:21: I have personally performed a face to face evaluation on this patient. I have r eviewed and agree with the care plan. History and Exam by me shows: Patient is feeling much better than a couple of days ago. Pain is even better than yesterday. He states he is pleased that his bowels move last night. He denies abdominal pain or diarrhea. He is participating well in therapy. Nursing still notes that he is sometimes seemingly confused and when he talks on his own, he seems appropriate. He is able to answer questions about orientation, etc. Discussed care with other providers and/or nursing. Patient has no complaint of chest discomfort, dyspnea, orthopnea, palpitations, nausea or vomiting, constipation or diarrhea, other changes in bowel habits, difficulty with urination, rash or itching, or other new complaints, except as mentioned above. Review of systems is otherwise negative. Examination: (Except as mentioned above): General: In no apparent distress. Alert and oriented 3. Nondiaphoretic. Head: Atraumatic and normocephalic. Respiratory: No use of accessory muscles. Lungs are clear throughout. Normal airflow. Cardiovascular: Regular rate and rhythm without murmur appreciated. Abdomen: Bowel sounds are normal. No hepatosplenomegaly mass or tenderness appreciated. Obese and therefore difficult to palpate deeply. Extremities: No cyanosis clubbing or edema. Skin: Warm and non-diaphoretic with no new lesions noted. Original Note: Date of Encounter: 03/05/18 Time of Encounter: 14:03 - Assessment and plan (1) Status post total right knee replacement Current Visit: Yes Status: Acute Assessment and plan: Patient continues with complaints of pain to his right knee which increases during mobilization. Pain to right knee has improved over the past several days and patient has been dissipating in physical therapy. We will continue with current plan of care. (2) CKD (chronic kidney disease) Current Visit: Yes Status: Chronic Assessment and plan: No acute issues at this time. Patient's last creatinine was 1.52. We will continue to monitor patient's renal status with serial labs. We will continue with current medications. Qualifiers: Chronic kidney disease stage: unspecified stage Qualified Code(s): N18.9 - Chronic kidney disease, unspecified (3) HTN (hypertension) Current Visit: Yes Status: Chronic Assessment and plan: Vital signs are stable. We will continue with current medications. Qualifiers: Hypertension type: unspecified Qualified Code(s): I10 - Essential (primary) hypertension (4) GERD (gastroesophageal reflux disease) Current Visit: Yes Status: Chronic Assessment and plan: No acute issues. Patient denies any current reflux or abdominal pain. We will continue with current medications. Qualifiers: Esophagitis presence: esophagitis presence not specified Qualified Code(s): K21.9 - Gastro-esophageal reflux disease without esophagitis (5) Diabetes mellitus Current Visit: Yes Status: Chronic Assessment and plan: No acute issues. Patient's glucoses preferable controlled with most fingerstick readings between 150 and 200. We will continue with current medication regimen. Qualifiers: Diabetes mellitus type: type 2 Diabetes mellitus chcf insulin use: with syrup mixer helper use Diabetes mellitus complication status: with unspecified complications Qualified Code(s): E11.8 - Type 2 diabetes mellitus with unspecified complications; Z79.4 - long term acute care registered nurse (current) use of insulin (6) Gout Current Visit: Yes Status: Acute Assessment and plan: Patient states that his pain to his left knee and bilateral wrist has mostly resolved since yesterday. Patient continues on allopurinol. We will continue to monitor. Patient to continue with physical therapy. Qualifiers: Gout site: unspecified site Gout etiology: unspecified cause Chronicity: unspecified Qualified Code(s): M10.9 - Gout, unspecified - Time Spent With Patient less than 15 minutes - Subjective Interval history: Patient appears relaxed. Patient states he continues to have slight pain to his right knee surgical site which increases during mobilization. Patient states that his pain to his left knee and wrist have resolved over the past day. Patient denies any other current issues. - Constitutional Vitals: Temp Pulse Resp BP Pulse Ox 97.7 F 99 16 114/63 97 03/05/18 07:29 03/05/18 07:29 03/05/18 07:29 03/05/18 07:29 03/05/18 07:29 General appearance: Present: cooperative, A&O X 3, pleasant - Head Head exam: Present: atraumatic, normocephalic - Eye Eye exam: Present: PERRL, conjuntiva pink, sclera anicteric Pupils: Present: PERRL - Neck Neck exam general surgery: Present: supple, trachea midline. Absent: lymphadenopathy - Respiratory Respiratory exam: Present: CTAB. Absent: accessory muscle use, rales, rhonchi, wheezes - Cardiovascular Cardiovascular exam: Present: RRR, +S1, +S2. Absent: diastolic murmur, gallop, rubs, systolic murmur - GI/Abdominal GI/Abdominal exam: Present: normal bowel sounds, soft, no peritoneal signs. Absent: distended, tenderness - Extremities Exam Extremities exam: Present: warm, radial pulses palpable and symmetrical. Absent: calf tenderness, cyanotic, pedal edema Additional comments: Right knee with midline incision that appears healthy and intact. - Neurological Exam Neurological exam: Present: CN II-XII intact, oriented X3, no focal deficits. Absent: pronater drift, facial droop, speech deficit - Skin Skin exam: Present: dry, intact Internal Medicine: Result - Labs CBC & Chem 7: 03/02/18 09:12 03/02/18 09:12 - VTE Documentation of Mechanical Device: Graduated compression elastic hosiery Consult Discharge Plan - Plan Referrals: princess,Nahun Rdz MD [Primary Care Provider] -
[2018-03-06] MEDS: *HR* OxyCODONE Immed Rel 5 MG TABLET PO PRN ×3 (05:58→18:47)
[2018-03-06] MEDS: tiZANidine 4 MG TABLET PO SCH ×4 (09:23→21:29)
[2018-03-06] MEDS: Acetaminophen 325 MG TABLET PO PRN (09:23)
[2018-03-06] MEDS: Aspirin Enteric Coated 325 MG Tablet PO SCH ×2 (09:23→21:29)
[2018-03-06] MEDS: Colchicine 0.6 MG TABLET PO SCH ×2 (09:23→21:29)
[2018-03-06] MEDS: Insulin LISPRO 300 UNITS/3 ML VIAL SQ SCH ×4 (09:24→21:22)
[2018-03-06] MEDS: Insulin NPH/REG 70/30 100 UNIT/ML (x5UNIT) SQ SCH ×2 (09:24→18:47)
--- NOTE | 2018-03-06 10:07 | Internal Med Progress Note ---
Date of Encounter: 03/06/18 Time of Encounter: 10:04 - Assessment and plan (1) Hypertension Current Visit: No Status: Chronic Qualifiers: Hypertension type: essential hypertension Qualified Code(s): I10 - Essential (primary) hypertension (2) Diabetes mellitus, new onset Current Visit: No Status: Acute (3) S/P total knee arthroplasty Current Visit: Yes Status: Acute Assessment and plan: getting rehab doing fine pain is well controlled Qualifiers: Laterality: left Qualified Code(s): Z96.652 - Presence of left artificial knee joint (4) Anemia Current Visit: Yes Status: Chronic Assessment and plan: iron studies and Iron tabs Qualifiers: Anemia type: iron deficiency Qualified Code(s): D50.0 - Iron deficiency anemia secondary to blood loss (chronic) - Subjective Interval history: no new issues pain is well controlled getting rehab . Trying to use CPAP and interested to get a new Mask no fever or chills SOB or palpitation or any other issues at the present time . - Constitutional Vitals: Temp Pulse Resp BP Pulse Ox 98 F 84 14 127/78 99 03/06/18 07:00 03/06/18 07:00 03/06/18 07:00 03/06/18 07:00 03/05/18 19:00 General appearance: Present: cooperative, A&O X 3, pleasant - Head Head exam: Present: atraumatic - Eye Eye exam: Present: EOMI, PERRL, sclera anicteric Pupils: Present: PERRL - Neck Neck exam general surgery: Present: full ROM, supple. Absent: tenderness, nuchal rigidity - Respiratory Respiratory exam: Present: CTAB. Absent: prolonged expiratory phase, rales, respiratory distress, stridor, wheezes, tachypnea - Cardiovascular Cardiovascular exam: Present: RRR, +S1, +S2. Absent: diastolic murmur, irregular rhythm, JVD, +S3, +S4, systolic murmur - GI/Abdominal GI/Abdominal exam: Present: normal bowel sounds, soft. Absent: firm, guarding, mass, rigid, splenomegaly, tenderness - Extremities Exam Additional comments: right joint wrapped in heating pad no swelling noted in lower leg both sides - Incison Incision: Present: clean and dry, intact, erythema. Absent: draining, purulent - Neurological Exam Neurological exam: Present: CN II-XII intact, oriented X3. Absent: no focal deficits, facial droop, speech deficit Internal Medicine: Result - Labs CBC & Chem 7: 03/02/18 09:12 03/02/18 09:12 - VTE Documentation of Mechanical Device: Graduated compression elastic hosiery Consult Discharge Plan - Plan Referrals: [facility] [place],Nahun Rdz MD [Primary Care Provider] -
[2018-03-06 12:16] LABS: Thyroid Stimulating Hormone 2.05 mcIU/mL (0.340-5.600)
[2018-03-07] MEDS: *HR* OxyCODONE Immed Rel 5 MG TABLET PO PRN ×4 (03:17→22:01)
[2018-03-07] MEDS: Aspirin Enteric Coated 325 MG Tablet PO SCH ×2 (08:07→22:01)
[2018-03-07] MEDS: Colchicine 0.6 MG TABLET PO SCH ×2 (08:07→22:00)
[2018-03-07] MEDS: tiZANidine 4 MG TABLET PO SCH ×4 (08:08→22:01)
[2018-03-07] MEDS: Insulin LISPRO 300 UNITS/3 ML VIAL SQ SCH ×4 (08:09→21:52)
[2018-03-07] MEDS: Insulin NPH/REG 70/30 100 UNIT/ML (x5UNIT) SQ SCH ×2 (08:10→18:18)
--- NOTE | 2018-03-07 09:27 | Internal Med Progress Note ---
Date of Encounter: 03/07/18 Time of Encounter: 09:24 - Assessment and plan (1) Hypertension Current Visit: No Status: Chronic Assessment and plan: stable continue present medications Qualifiers: Hypertension type: essential hypertension Qualified Code(s): I10 - Essential (primary) hypertension (2) Diabetes mellitus, new onset Current Visit: No Status: Acute Assessment and plan: blood sugar reasonable well controlled continue present management (3) S/P total knee arthroplasty Current Visit: Yes Status: Acute Assessment and plan: pain is stable , incsion healing well on PT Qualifiers: Laterality: left Qualified Code(s): Z96.652 - Presence of left artificial knee joint (4) Anemia Current Visit: Yes Status: Chronic Assessment and plan: Iron low started on Iron supplement stable Qualifiers: Anemia type: iron deficiency Qualified Code(s): D50.0 - Iron deficiency anemia secondary to blood loss (chronic) - Subjective Interval history: NO acute issues pain is well controlled getting his PT and using CPAP at night - Constitutional Vitals: Temp Pulse Resp BP Pulse Ox 98.3 F 95 17 123/80 99 03/07/18 07:00 03/07/18 07:00 03/07/18 07:00 03/07/18 07:00 03/07/18 07:00 General appearance: Present: cooperative, A&O X 3, pleasant, answers questions appropriately. Absent: severe distress, underweight, loss of weight - Head Head exam: Present: atraumatic - Eye Eye exam: Present: EOMI, PERRL. Absent: scleral icterus, conjuntiva pink, sclera anicteric Pupils: Present: PERRL - Neck Neck exam general surgery: Present: supple. Absent: tenderness, nuchal rigidity - Respiratory Respiratory exam: Present: CTAB. Absent: decreased breath sounds, prolonged expiratory phase, respiratory distress, rhonchi, stridor, wheezes - Cardiovascular Cardiovascular exam: Present: RRR, +S1, +S2. Absent: JVD, systolic murmur, tachycardia - GI/Abdominal GI/Abdominal exam: Present: normal bowel sounds, soft. Absent: distended, firm, guarding, mass, rigid, tenderness, no peritoneal signs - Extremities Exam Extremities exam: Absent: pedal edema, tenderness - Incison Incision: Present: clean and dry, intact. Absent: swollen, inflamed, erythema, purulent, indurated - Neurological Exam Neurological exam: Present: CN II-XII intact, oriented X3, reflexes normal, strengths equal and symetr throughout. Absent: no focal deficits, facial droop, speech deficit Internal Medicine: Result - Labs CBC & Chem 7: 03/02/18 09:12 03/02/18 09:12 - VTE Documentation of Mechanical Device: Graduated compression elastic hosiery Consult Discharge Plan - Plan Referrals: Nahun Cristobal MD [Primary Care Provider] -
[2018-03-07] MEDS: Acetaminophen 325 MG TABLET PO PRN (18:34)
[2018-03-08] MEDS: *HR* OxyCODONE Immed Rel 5 MG TABLET PO PRN ×5 (05:23→22:48)
[2018-03-08] MEDS: Insulin LISPRO 300 UNITS/3 ML VIAL SQ SCH ×3 (08:00→17:15)
[2018-03-08] MEDS: Colchicine 0.6 MG TABLET PO SCH ×2 (09:18→22:47)
[2018-03-08] MEDS: Aspirin Enteric Coated 325 MG Tablet PO SCH ×2 (09:19→22:47)
[2018-03-08] MEDS: tiZANidine 4 MG TABLET PO SCH ×4 (09:19→22:47)
[2018-03-08] MEDS: Insulin NPH/REG 70/30 100 UNIT/ML (x5UNIT) SQ SCH ×2 (09:49→17:33)
--- NOTE | 2018-03-08 11:02 | Internal Med Progress Note ---
Addendum entered and electronically signed by Abraham Somers MD 03/08/18 11:25: I have personally performed a face to face evaluation on this patient. I have r eviewed and agree with the care plan. History and Exam by me shows: Patient is still complaining of pain but it is much improved. The nursing staff notes that he is using his oxycodone, every 4, [id number]. When asked about this, he states that this is necessary. However, he sometimes slightly overmedicated, still. He denies other problems including no bowel or bladder problems, etc. His gout symptoms are improved and he is to see his deployment engineer, Dr. Mckeon, later today. Discussed care with other providers and/or nursing. Patient has no complaint of chest discomfort, dyspnea, orthopnea, palpitations, nausea or vomiting, constipation or diarrhea, other changes in bowel habits, difficulty with urination, rash or itching, or other new complaints, except as mentioned above. Review of systems is otherwise negative. Examination: (Except as mentioned above): General: In no apparent distress. Alert and oriented 3. Nondiaphoretic. He has mild asterixis. Head: Atraumatic and normocephalic. Respiratory: No use of accessory muscles. Lungs are clear throughout. Normal airflow. Cardiovascular: Regular rate and rhythm without murmur appreciated. Abdomen: Bowel sounds are normal. No hepatosplenomegaly mass or tenderness appreciated. Obese and therefore difficult to palpate deeply. Extremities: No cyanosis clubbing or edema. Skin: Warm and non-diaphoretic with no new lesions noted. We will not decrease his oxycodone at this time, because of his trip today. However, we will plan to do this and see what Dr. Mckeon says about his antigout medications. Original Note: Date of Encounter: 03/08/18 Time of Encounter: 11:00 - Assessment and plan (1) Status post total right knee replacement Current Visit: Yes Status: Acute Assessment and plan: Continue PT and OT. Continue oxycodone and zanaflex for pain. Follow up with as scheduled. (2) CKD (chronic kidney disease) Current Visit: Yes Status: Chronic Assessment and plan: Monitor labs. Avoid nephrotoxic agents. Qualifiers: Chronic kidney disease stage: unspecified stage Qualified Code(s): N18.9 - Chronic kidney disease, unspecified (3) HTN (hypertension) Current Visit: Yes Status: Chronic Assessment and plan: Controlled with current medication. Monitor blood pressure. Qualifiers: Hypertension type: unspecified Qualified Code(s): I10 - Essential (primary) hypertension (4) TERRY on CPAP Current Visit: Yes Status: Chronic Assessment and plan: Stable. Continue CPAP. (5) Diabetes mellitus Current Visit: Yes Status: Chronic Assessment and plan: Continue insulin per sliding scale. Monitor fingerstick blood sugar. Qualifiers: Diabetes mellitus type: type 2 Diabetes mellitus assisted insulin use: with long term care phlebotomist use Diabetes mellitus complication status: with unspecified complications Qualified Code(s): E11.8 - Type 2 diabetes mellitus with unspecified complications; Z79.4 - intermission coordinator (current) use of insulin (6) Gout Current Visit: Yes Status: Acute Assessment and plan: continue allopurinol and colchicine. Will monitor for improvement. f/u with Dr Sewell (Concrete Batcher today.). Qualifiers: Gout site: multiple sites Gout etiology: unspecified cause Chronicity: acute Qualified Code(s): M10.9 - Gout, unspecified - Time Spent With Patient less than 15 minutes - Subjective Interval history: participating well with therapy. states pain is controlled at this time. f/u apt this afternoon with Dr Mckeon, Concrete Batcher. denies fever, chills, NVD, SOB or chest pain. maintaining appetite and hydration. bowels moving as normal. - Constitutional Vitals: Temp Pulse Resp BP Pulse Ox 98.3 F 100 15 111/71 97 03/08/18 08:15 03/08/18 08:15 03/08/18 08:15 03/08/18 08:15 03/08/18 08:15 General appearance: Present: cooperative, A&O X 3, pleasant, answers questions appropriately. Absent: severe distress, underweight, loss of weight - Head Head exam: Present: atraumatic, normocephalic - Eye Eye exam: Present: PERRL, conjuntiva pink, sclera anicteric Pupils: Present: PERRL - Neck Neck exam general surgery: Present: supple, trachea midline. Absent: lymphadenopathy - Respiratory Respiratory exam: Present: CTAB. Absent: accessory muscle use, rales, rhonchi, wheezes - Cardiovascular Cardiovascular exam: Present: RRR, +S1, +S2. Absent: diastolic murmur, gallop, rubs, systolic murmur - GI/Abdominal GI/Abdominal exam: Present: normal bowel sounds, soft, no peritoneal signs. Absent: distended, tenderness - Extremities Exam Extremities exam: Present: warm, radial pulses palpable and symmetrical. Absent: calf tenderness, cyanotic, pedal edema - Incison Comments: right knee drsg dry and intact. slight surrounding edema. no drainage. - Neurological Exam Neurological exam: Present: CN II-XII intact, oriented X3, no focal deficits. Absent: pronater drift, facial droop, speech deficit - Skin Skin exam: Present: dry, intact Internal Medicine: Result - Labs CBC & Chem 7: 03/02/18 09:12 03/02/18 09:12 - VTE Documentation of Mechanical Device: Graduated compression elastic hosiery Consult Discharge Plan - Plan Referrals: Nahun Cristobal MD [Primary Care Provider] -
[2018-03-09] MEDS: Insulin LISPRO 300 UNITS/3 ML VIAL SQ SCH ×5 (00:25→21:11)
[2018-03-09] MEDS: *HR* OxyCODONE Immed Rel 5 MG TABLET PO PRN ×4 (05:01→20:32)
[2018-03-09] MEDS: Aspirin Enteric Coated 325 MG Tablet PO SCH ×2 (09:32→20:31)
[2018-03-09] MEDS: tiZANidine 4 MG TABLET PO SCH ×4 (09:33→20:32)
[2018-03-09] MEDS: Colchicine 0.6 MG TABLET PO SCH ×2 (09:34→20:31)
[2018-03-09] MEDS: Insulin NPH/REG 70/30 100 UNIT/ML (x5UNIT) SQ SCH ×2 (09:36→17:44)
--- NOTE | 2018-03-09 11:52 | Internal Med Progress Note ---
Addendum entered and electronically signed by Abraham Somers MD 03/09/18 12:31: I have personally performed a face to face evaluation on this patient. I have r eviewed and agree with the care plan. History and Exam by me shows: Patient is still having left knee pain and we talked about his gout, and length. He is to go on prednisone, per Dr. Mckeon, with the risk of increasing his blood sugar. Patient understands the importance of watching his blood sugar at home and keeping it down so that he does not get infection. He agrees to do so. Several hours after seen by me, Dr. Mckeon called and I explained to him what our approach was. He agreed with our approach but would like to have him: 5 days prednisone. However, because of his high sugars and recent surgery, he agrees with only prednisone 20 mg daily for 5 days. Because he is already begun on the allopurinol he thinks we should continue this and he will keep him on this low dose for about a month, rechecking at that time. He was unaware, when he saw the patient yesterday, that his uric acid had been in the 15 range. I told him it was 15.4 and explained that he had been on cultures seen for about a week. The patient denies other problems, has had no diarrhea, has been moving his bowels well. Discussed care with other providers and/or nursing. Patient has no complaint of chest discomfort, dyspnea, orthopnea, palpitations, nausea or vomiting, constipation or diarrhea, other changes in bowel habits, difficulty with urination, rash or itching, or other new complaints, except as mentioned above. Review of systems is otherwise negative. Examination: (Except as mentioned above): General: In no apparent distress. Alert and oriented 3. Nondiaphoretic. He has no asterixis today. Head: Atraumatic and normocephalic. Respiratory: No use of accessory muscles. Lungs are clear throughout. Normal airflow. Cardiovascular: Regular rate and rhythm without murmur appreciated. Abdomen: Bowel sounds are normal. No hepatosplenomegaly mass or tenderness appreciated. Obese and therefore difficult to palpate deeply. Extremities: No cyanosis clubbing or edema. Skin: Warm and non-diaphoretic with no new lesions noted. Because of family and transportation issues, the patient once go home today but this will be delayed until tomorrow. Original Note: Date of Encounter: 03/09/18 Time of Encounter: 11:49 - Assessment and plan (1) Status post total right knee replacement Current Visit: Yes Status: Acute Assessment and plan: Continue PT and OT. Continue oxycodone and zanaflex for pain. Follow up with as scheduled. (2) CKD (chronic kidney disease) Current Visit: Yes Status: Chronic Assessment and plan: Monitor labs. Avoid nephrotoxic agents. Qualifiers: Chronic kidney disease stage: unspecified stage Qualified Code(s): N18.9 - Chronic kidney disease, unspecified (3) HTN (hypertension) Current Visit: Yes Status: Chronic Assessment and plan: Controlled with current medication. Monitor blood pressure. Qualifiers: Hypertension type: unspecified Qualified Code(s): I10 - Essential (primary) hypertension (4) TERRY on CPAP Current Visit: Yes Status: Chronic Assessment and plan: Stable. Continue CPAP. (5) Diabetes mellitus Current Visit: Yes Status: Chronic Qualifiers: Diabetes mellitus type: type 2 Diabetes mellitus alf insulin use: with alf use Diabetes mellitus complication status: with unspecified complications Qualified Code(s): E11.8 - Type 2 diabetes mellitus with unspecified complications; Z79.4 - long-term (current) use of insulin (6) Gout Current Visit: Yes Status: Acute Assessment and plan: Pressure Tank Operator suggested prednisone 40 mg for 5 days. Will order. Will monitor for improvement. Qualifiers: Gout site: multiple sites Gout etiology: unspecified cause Chronicity: acute Qualified Code(s): M10.9 - Gout, unspecified - Time Spent With Patient less than 15 minutes - Subjective Interval history: participating well with therapy. states pain is controlled at this time. Went to see spinner tender yesterday. Try to inject left knee. Suggested starting prednisone 40 mg for 5 days. denies fever, chills, NVD, SOB or chest pain. maintaining appetite and hydration. bowels moving as normal. Patient transferring standby assist. Planning for discharge to home with tomorrow. - Constitutional Vitals: Temp Pulse Resp BP Pulse Ox 98.3 F 89 15 120/74 97 03/09/18 09:19 03/09/18 09:19 03/09/18 09:19 03/09/18 09:19 03/09/18 09:19 General appearance: Present: cooperative, A&O X 3, pleasant, answers questions appropriately. Absent: severe distress, underweight, loss of weight - Head Head exam: Present: atraumatic, normocephalic - Eye Eye exam: Present: PERRL, conjuntiva pink, sclera anicteric Pupils: Present: PERRL - Neck Neck exam general surgery: Present: supple, trachea midline. Absent: lymph adenopathy - Respiratory Respiratory exam: Present: CTAB. Absent: accessory muscle use, rales, rhonchi, wheezes - Cardiovascular Cardiovascular exam: Present: RRR, +S1, +S2. Absent: diastolic murmur, gallop, rubs, systolic murmur - GI/Abdominal GI/Abdominal exam: Present: normal bowel sounds, soft, no peritoneal signs. Absent: distended, tenderness - Extremities Exam Extremities exam: Present: warm, radial pulses palpable and symmetrical. Absent: calf tenderness, cyanotic, pedal edema - Incison Comments: Right knee incision dressing dry and intact. No drainage. Slight surrounding edema. - Neurological Exam Neurological exam: Present: CN II-XII intact, oriented X3, no focal deficits. Absent: pronater drift, facial droop, speech deficit - Skin Skin exam: Present: dry, intact Internal Medicine: Result - Labs CBC & Chem 7: 03/02/18 09:12 03/02/18 09:12 - VTE Documentation of Mechanical Device: Graduated compression elastic hosiery Consult Discharge Plan - Plan Referrals: Nahun Cristobal MD [Primary Care Provider] -
[2018-03-09] MEDS ORDERED: predniSONE 20 MG TABLET PO SCH (12:00)
[2018-03-09] MEDS: predniSONE 20 MG TABLET PO SCH (13:24)
[2018-03-10] MEDS: *HR* OxyCODONE Immed Rel 5 MG TABLET PO PRN (06:03)
[2018-03-10] MEDS: Insulin LISPRO 300 UNITS/3 ML VIAL SQ SCH ×2 (07:28→12:55)
[2018-03-10 07:30] VITALS: BP 124/80
--- NOTE | 2018-03-10 08:48 | Discharge Summary ---
Addendum entered and electronically signed by Abraham Somers MD 03/10/18 13:39: I have personally performed a face to face evaluation on this patient. I have r eviewed and agree with the care plan. History and Exam by me shows: Patient has persistent pain but is pleased that he is doing better and is looking forward to going home. He denies bowel or bladder problems. Discussed care with other providers and/or nursing. Patient has no complaint of chest discomfort, dyspnea, orthopnea, palpitations, nausea or vomiting, constipation or diarrhea, other changes in bowel habits, difficulty with urination, rash or itching, or other new complaints, except as mentioned above. Review of systems is otherwise negative. Examination: (Except as mentioned above): General: In no apparent distress. Alert and oriented 3. Nondiaphoretic. Head: Atraumatic and normocephalic. Respiratory: No use of accessory muscles. Lungs are clear throughout. Normal airflow. Cardiovascular: Regular rate and rhythm without murmur appreciated. Abdomen: Bowel sounds are normal. No hepatosplenomegaly mass or tenderness appreciated. Obese and therefore difficult to palpate deeply. Extremities: No cyanosis clubbing or edema. Skin: Warm and non-diaphoretic with no new lesions noted. Questions about his medications and discharge follow-up plans were answered. I explained that he will have prednisone and allopurinol and low-dose, as mentioned yesterday. I also informed him that the prednisone may increase his sugar and that he needs keep an eye on his blood sugar at home, closely. This is especially true for the next several days as it may cause infection and elevated. He understands and agrees to watch his sugar. Original Note: Orders not resulted at time of discharge: Pending orders 03/06/18 10:11 Occult Blood,Stool [BF] Routine Date of Encounter: 03/10/18 Time of Encounter: 08:44 - Discharge Diagnosis (1) Status post total right knee replacement Priority: Primary Status: Acute Comments: continue current pain meds. continue outpatient PT. f/u with surgeon as scheduled. (2) CKD (chronic kidney disease) Priority: Secondary Status: Chronic Comments: Stable. Follow up with PCP. Qualifiers: Chronic kidney disease stage: unspecified stage Qualified Code(s): N18.9 - Chronic kidney disease, unspecified (3) HTN (hypertension) Priority: Secondary Status: Chronic Comments: Controlled with current medication. Follow up with PCP. Qualifiers: Hypertension type: unspecified Qualified Code(s): I10 - Essential (primary) hypertension (4) TERRY on CPAP Priority: Secondary Status: Chronic Comments: Stable. Follow up with PCP. (5) Diabetes mellitus Priority: Secondary Status: Chronic Comments: Slightly elevated due to prednisone. Continue current medication. Follow up with PCP. Qualifiers: Diabetes mellitus type: type 2 Diabetes mellitus intermediate project manager insulin use: with intermediate project manager use Diabetes mellitus complication status: with unspecified complications Qualified Code(s): E11.8 - Type 2 diabetes mellitus with unspecified complications; Z79.4 - manager terminal (current) use of insulin (6) Gout Priority: Secondary Status: Acute Comments: Continue prednisone 20 mg for 4 more days and allopurinol. Follow up with curling machine operator as scheduled Qualifiers: Gout site: multiple sites Gout etiology: unspecified cause Chronicity: acute Qualified Code(s): M10.9 - Gout, unspecified Hospital course: Mr. Verde is a 63 year old male discharging to home with with outpatient therapy. Patient is status post right total knee replacement. Progressing well with therapy. Transfers with standby assist. Ambulating with Walker. Pain controlled with current pain medication. Stay was complicated by gout flareup. Went to see rheumatology 2 days ago and was started on prednisone and allopurinol. Patient is to also continue colchicine. To follow up with rheuma tology as scheduled and PCP within one week. Denies any other questions or concerns at this time. Discharge discussed with: patient, family, nurse, social work - Time Spent with Patient Total time spent providing and/or coordinating discharge services: Less than 30 minutes - Discharge Medications Home Medications: Atorvastatin [Lipitor] 20 mg PO DAILY 03/05/15 [History] Omeprazole [PriLOSEC] 40 mg PO DAILY 11/14/17 [History] Acetaminophen [Tylenol] 650 mg PO Q6HR PRN 02/22/18 [History] Insulin NPH/REG 70/30 (HUMAN) [Humulin 70/30 Vial] 8 unit SQ BIDWM 02/26/18 [History] Allopurinol [Zyloprim 100 MG] 100 mg PO DAILY #30 tablet 03/10/18 [Rx] Aspirin Enteric Coated [Aspirin EC] 325 mg PO BID tablet. 03/10/18 [Rx] Colchicine [Colcrys] 0.6 mg PO BID #60 tablet 03/10/18 [Rx] Docusate [Colace] 100 mg PO BID capsule 03/10/18 [Rx] Ferrous Sulfate 325 mg PO BIDWM 7 Days #14 tablet 03/10/18 [Rx] Insulin LISPRO [HumaLOG] 0 units SQ HS vial 03/10/18 [Rx] Insulin LISPRO [HumaLOG] 0 units SQ TIDAC vial 03/10/18 [Rx] Lidocaine Patch [Lidoderm 5% patch] 1 each TP DAILY #7 adh..patch 03/10/18 [Rx] OxyCODONE Immed Rel [Roxicodone 5 MG] 5 mg PO Q4HR PRN 7 Days #40 tablet 03/10/18 [Rx] predniSONE [PredniSONE] 20 mg PO DAILY 4 Days #4 tablet 03/10/18 [Rx] Allergies/Adverse Reactions: Allergy/AdvReac Type Severity Reaction Status Date / Time No Known Allergies Allergy Verified 02/22/18 14:58 Date of admission: 02/26/18 20:35 Primary care physician: Nahun Cristobal MD Consults: 02/26/18 21:06 Consult to Occupational Therapy [CONS] Routine Comment: eval / tx Reason for Consult: eval / tx Does patient have active BEDREST order?: No Is patient medically & hemodynamically stable?: Yes Patient assessed for mobility or mobilized this visit?: No Consult to Physical Therapy [CONS] Routine Comment: eval / tx Reason for Consult: eval / tx Does patient have active BEDREST order?: No Is patient medically & hemodynamically stable?: Yes Patient assessed for mobility or mobilized this visit?: No Consult to Recreational Therapy [CONS] Routine Comment: Consult to Stainless Steel Finisher [CONS] Routine Reason for SW Consult: d/c planning 02/26/18 21:11 Consult to Physical Medicine/Rehab [CONS] Routine Reason for Consult: Please evaluate and manage therapies' guidelines and recommend pathway to reconditioning. Call Completed: No 03/01/18 16:00 Consult to Psychology [CONS] Routine Consulting Provider: Esha Cruz Reason for Consult: Possible depression; adjustment disorder Call Completed: No Discharging clinician: Abraham Somers Anticipated date of discharge: 03/10/18 - Constitutional Vitals: Temp Pulse Resp BP Pulse Ox 97.8 F 70 18 124/80 97 03/10/18 07:22 03/10/18 07:22 03/10/18 07:22 03/10/18 07:22 03/10/18 07:22 General appearance: Present: cooperative, A&O X 3, pleasant, answers questions appropriately. Absent: severe distress, underweight, loss of weight - Head Head exam: Present: atraumatic, normocephalic - Eye Eye exam: Present: PERRL, conjuntiva pink, sclera anicteric Pupils: Present: PERRL - Neck Neck exam general surgery: Present: supple, trachea midline. Absent: lymphadenopathy - Respiratory Respiratory exam: Present: CTAB. Absent: accessory muscle use, rales, rhonchi, wheezes - Cardiovascular Cardiovascular exam: Present: RRR, +S1, +S2. Absent: diastolic murmur, gallop, rubs, systolic murmur - GI/Abdominal GI/Abdominal exam: Present: normal bowel sounds, soft, no peritoneal signs. Absent: distended, tenderness - Extremities Exam Extremities exam: Present: warm, radial pulses palpable and symmetrical. Absent: calf tenderness, cyanotic, pedal edema Additional comments: Left knee edematous. - Incison Comments: Right knee surgical incision dressing dry and intact. No drainage. Slight surrounding edema. - Neurological Exam Neurological exam: Present: CN II-XII intact, oriented X3, no focal deficits. Absent: pronater drift, facial droop, speech deficit - Skin Skin exam: Present: dry, intact - Patient Status Disposition: Home, Self-Care Condition: Good Functional capacity at discharge: uses cane/walker Overall status at discharge: patient is progressing back to baseline - Discharge Instructions [place] [facility] [place] [Primary Care Provider[place] - - Diet and Activity Activity: as per physical therapy Diet: diabetic diet - VTE Documentation of Mechanical Device: Graduated compression elastic hosiery
[2018-03-10] MEDS: tiZANidine 4 MG TABLET PO SCH ×2 (08:50→12:58)
[2018-03-10] MEDS: predniSONE 20 MG TABLET PO SCH (08:50)
[2018-03-10] MEDS: Colchicine 0.6 MG TABLET PO SCH (08:50)
[2018-03-10] MEDS: Aspirin Enteric Coated 325 MG Tablet PO SCH (08:52)
[2018-03-10] MEDS: Insulin NPH/REG 70/30 100 UNIT/ML (x5UNIT) SQ SCH (08:53)
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
== END 2018-03-10 14:30 | disposition home or self-care (01) | DRG 561 ==
LOC: INPGRE 20:35